=== PATIENT | male | born 1960 | race Caucasian/White ===

== ENCOUNTER 2017-09-19 11:56 | Emergency (ER) | payer BC ==
[2017-09-19 12:28] VITALS: BP 128/82
--- NOTE | 2017-09-19 12:50 | UC ---
Respiratory Complaint HPI - HPI Summary HPI Summary: Post nasal drip, cough, congestion, sore throat for about two days. had something similar prior. NO fever. Non smoker. No asthma. - History of Current Complaint Chief Complaint: UCRespiratory Stated Complaint: SINUS/ST COMPLAINT Time Seen by Provider: 09/19/17 12:35 Hx Obtained From: Patient Onset/Duration: Gradual Onset, Lasting Days Timing: Constant Severity Initially: Moderate Severity Currently: Moderate Pain Intensity: 0 Character: Cough: Productive Aggravating Factors: Deep Breaths, Recumbent Position Alleviating Factors: Upright Position, Spontaneous Resolution Associated Signs And Symptoms: Positive: Dyspnea, URI, Nasal Congestion, Sinus Discomfort. Negative: Fever, Chills - Risk Factors Pulmonary Embolism Risk Factors: Negative - Allergies/Home Medications Allergies/Adverse Reactions: Allergies Allergy/AdvReac Type Severity Reaction Status Date / Time No Known Allergies Allergy Verified 09/19/17 12:21 Home Medications: Home Medications Losartan/HCTZ 100/25 (NF) [Hyzaar 100/25 (NF)] 1 tab PO SEE INSTRUCTIONS [History Confirmed 09/19/17] carBAMazepine TAB(*) [TEGretol TAB(*)] 200 mg PO QID 09/19/17 [History Confirmed 09/19/17] guaiFENesin ER TAB [Mucinex*] 600 mg PO BID PRN 09/19/17 [History Confirmed ] PMH/Surg Hx/FS Hx/Imm Hx Previously Healthy: No - prior pneumonia. - Surgical History Surgical History: None - Family History Known Family History: Positive: None - Social History Alcohol Use: Occasionally Substance Use Type: None Smoking Status (MU): Never Smoked Tobacco - Immunization History Most Recent Influenza Vaccination: [id number] Review of Systems ENT: Sore Throat, Sinus Congestion Respiratory: Cough All Other Systems Reviewed And Are Negative: Yes Physical Exam Triage Information Reviewed: Yes Appearance: Well-Appearing, No Pain Distress, Well-Nourished Vital Signs: Initial Vital Signs Temp 98.5 F 09/19/17 12:19 Pulse 80 09/19/17 12:19 Resp 16 09/19/17 12:19 BP 128/82 09/19/17 12:19 Pulse Ox 97 09/19/17 12:19 Vital Signs Reviewed: Yes Eyes: Positive: Conjunctiva Clear ENT: Positive: Pharynx normal, Nasal congestion, TMs normal, Sinus tenderness, Uvula midline. Negative: Pharyngeal erythema, Tonsillar swelling, Tonsillar exudate, Trismus Neck: Positive: Supple, Nontender, No Lymphadenopathy Respiratory: Positive: Lungs clear, Normal breath sounds, No respiratory distress, No accessory muscle use. Negative: Respiratory distress, Decreased breath sounds, Accessory muscle use, Crackles, Rhonchi, Stridor, Wheezing Cardiovascular: Positive: No Murmur, Pulses Normal, Brisk Capillary Refill Abdomen Description: Positive: No Organomegaly, Soft. Negative: Distended, Guarding Musculoskeletal: Positive: Strength Intact, ROM Intact, No Edema Neurological: Positive: Alert, Muscle Tone Normal. Negative: Fatigued Psychological: Positive: Age Appropriate Behavior Skin: Negative: rashes UC Diagnostic Evaluation - Laboratory O2 Sat by Pulse Oximetry: 97 Respiratory Course/Dx - Differential Dx/Diagnosis Provider Diagnoses: uri- viral Discharge - Sign-Out/Discharge Documenting (check all that apply): Discharge/Admit/Transfer - Discharge Plan Condition: Good Disposition: HOME Prescriptions: Acetaminop/Codeine 30 MG TAB* [Tylenol/Codeine 30 MG TAB*] 1 tab PO BEDTIME PRN #10 tab MDD 1 PRN Reason: Cough Amoxicillin PO (*) [Amoxicillin 875 MG (*)] 875 mg PO BID #20 tab Benzonatate CAP* [Tessalon 100 MG CAP*] 100 mg PO TID PRN #30 cap PRN Reason: Cough Patient Education Materials: Upper Respiratory Infection (ED) Referrals: Dilan Aceves MD [Primary Care Provider] - If Needed Additional Instructions: Mucinex D in the Day, Tessalon perles for cough during the day, tylenol with codeine at night for cough. If not better in 7 days try antibiotic. You will have a cough for 1-2 weeks though no matter what. - Billing Disposition and Condition Condition: GOOD Disposition: HOME
== END 2017-09-19 12:54 | disposition home or self-care (01) ==
LOC: UCCORT 11:56
DX: J06.9 Acute upper respiratory infection, unspecified (principal)
CPT/HCPCS: 99212; G0463

== ENCOUNTER 2017-12-17 18:19 | Emergency (ER) | payer BC ==
[2017-12-17 19:04] VITALS: BP 150/100
--- NOTE | 2017-12-17 19:26 | UC ---
General HPI - HPI Summary HPI Summary: The pt is a 57 y/o male presenting to c/o a persistent cough and congestion since 4 months ago worsened today. He notes cough , pressure in the R ear , clear throat exudates aggravated by steamy showers, hay fever , and dry mouth. He denies SOB And wheezing. The pt takes antihistamines and HTN medication daily. This is scribe Pamela Kirby documenting for attending Dr. Tej Ivory.I , Dr. Tej Ivory personally performed the services described in this documentation as scribed in my presence and it is both accurate and complete. - History of Current Complaint Chief Complaint: UCGeneralIllness Stated Complaint: EAR & THROAT PAIN Time Seen by Provider: 12/17/17 19:15 Hx Obtained From: Patient, Family/Rack Loader Onset/Duration: Gradual Onset, Lasting Weeks - 16 weeks, Worse Since - Today Timing: Constant Onset Severity: Mild Current Severity: Mild Pain Intensity: 4 Associated Signs & Symptoms: Positive: Cough, Other - Positive: pressure in the R ear , clear throat exudate , hay fever , and dry mouth. Negative: SOB, Wheezing - Allergy/Home Medications Allergies/Adverse Reactions: Allergies Allergy/AdvReac Type Severity Reaction Status Date / Time No Known Allergies Allergy Verified 12/17/17 19:04 PMH/Surg Hx/FS Hx/Imm Hx Previously Healthy: No Cardiovascular History: Hypertension Neurological History: Seizures - Surgical History Surgical History: None - Family History Known Family History: Positive: Cardiac Disease - [place] - father - Social History Occupation: Employed Full-time Lives: With Family Alcohol Use: Rare Substance Use Type: None Smoking Status (MU): Never Smoked Tobacco - Immunization History Most Recent Influenza Vaccination: [id number] Review of Systems ENT: Ear Ache - R ear pressure, Other - Positive: Clear throat exudate, Hay fever Respiratory: Negative - SOB and Wheezing, Cough Gastrointestinal: Other - Positive: Dry mouth All Other Systems Reviewed And Are Negative: Yes Physical Exam - Summary Physical Exam Summary: General: well-appearing, no pain distress Skin: warm, color reflects adequate perfusion, dry Head: normal Eyes: EOMI, RAMON ENT: L ear canal has minimal amount cerumen; L TM has mild erythema; No tenderness to palpation of the L tragus; No pain with traction of the L pinnae ; R ear is normal ; Posterior pharynx is erythematous Neck: supple, nontender Respiratory: CTA, breath sounds present; No wheezing Cardiovascular: RRR Abdomen: soft, nontender Bowel: present Musculoskeletal: normal, strength/ROM intact Neurological: sensory/motor intact, A&O x3 Psychological: affect/mood appropriate Triage Information Reviewed: Yes Vital Signs: Initial Vital Signs Temp 98.6 F 12/17/17 19:00 Pulse 87 12/17/17 19:00 Resp 16 12/17/17 19:00 BP 150/100 12/17/17 19:00 Pulse Ox 98 12/17/17 19:00 Vital Signs Reviewed: Yes Course/Dx - Course Course Of Treatment: SX > 10 DAYS - Differential Dx - Multi-Symptom Provider Diagnoses: SINUSITIS. PHARYNGITIS Discharge - Sign-Out/Discharge Documenting (check all that apply): Patient Departure - Discharge Plan Condition: Stable Disposition: HOME Prescriptions: Amoxicillin/Clavulanate TAB* [Augmentin TAB 875*] 875 mg PO BID #20 tab Omeprazole CAP* [Prilosec CAP* 20 MG] 20 mg PO BID #30 cap. Patient Education Materials: Pharyngitis (ED), Sinusitis (ED) Referrals: Dilan Aceves MD [Primary Care Provider] - Additional Instructions: FOLLOW UP WITH YOUR DOCTOR. GET RECHECKED FOR ANY WORSENING OF YOUR CONDITION OR QUESTIONS OR CONCERNS. - Billing Disposition and Condition Condition: STABLE Disposition: Home
== END 2017-12-17 19:49 | disposition home or self-care (01) ==
LOC: UCEAST 18:19
DX: J32.9 Chronic sinusitis, unspecified (principal); J02.9 Acute pharyngitis, unspecified
CPT/HCPCS: 99212; G0463

== ENCOUNTER 2018-06-06 05:22 | Emergency (ER) | payer BC ==
[2018-06-06] MEDS ORDERED: EPINEPHrine,Rac 2.25% NEB.SOL* 0.5 ML INH ONE (05:42)
[2018-06-06] MEDS ORDERED: predniSONE TAB* 20 MG PO ONE (05:42)
--- NOTE | 2018-06-06 05:44 | ED ---
Respiratory - HPI Summary HPI Summary: Pt is a 57 y/o M presenting to the ED with a chief respiratory complaint onset around 0200 and 0400. 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 Scant clear phlegm comes up. Pt states he was worried tonight because he coughed and blew his voice out. Pt states he just got over a bout of shingles as well. Per , it gets worse with the cold. - History of Current Complaint Chief Complaint: EDUpperRespComplaint Stated Complaint: ASTHMA Time Seen by Provider: 06/06/18 05:35 Hx Obtained From: Patient Onset/Duration: Gradual Onset, Lasting Weeks, Still Present Timing: Constant Initial Severity: Mild Current Severity: Moderate Pain Intensity: 7 Character: Wheezing, Cough (Productive) Sputum Amount: Scant Sputum Color: Clear Aggravating Factor(s): Weather Change Alleviating Factor(s): Nothing - Allergy/Home Medications Allergies/Adverse Reactions: Allergies Allergy/AdvReac Type Severity Reaction Status Date / Time No Known Allergies Allergy Verified 06/07/18 04:00 Home Medications: Home Medications Acetaminophen [Tylenol Arthritis] 650 mg PO DAILY 06/06/18 [History Confirmed ] Candesartan Cilexetil 2 tab PO DAILY 06/06/18 [History Confirmed 06/06/18] Fluticasone NASAL SPRAY 50MCG* [Flonase NASAL SPRAY 50MCG*] 2 spray BOTH NARES DAILY 06/06/18 [History Confirmed 06/06/18] Levocetirizine Dihydrochloride [Xyzal Allergy 24Hr] 5 mg PO DAILY 06/06/18 [ History Confirmed 06/06/18] Omeprazole CAP (NF) [Prilosec CAP* 20 MG] 20 mg PO DAILY 06/06/18 [History Confirmed 06/06/18] Valacyclovir HCl [Valacyclovir] 1 tab PO DAILY 06/06/18 [History Confirmed 06/06] hydroCHLOROthiazide [Hydrochlorothiazide] 1 cap PO DAILY 06/06/18 [History Confirmed 06/06/18] prednisoLONE 1% OPHTH.SUSP* [Pred Forte 1%*] 1 drop LEFT EYE DAILY 06/06/18 [ History Confirmed 06/06/18] PMH/Surg Hx/FS Hx/Imm Hx Previously Healthy: Yes Endocrine/Hematology History: Denies: Hx Diabetes Cardiovascular History: Reports: Hx Hypertension Respiratory History: Denies: Hx Asthma Neurological History: Reports: Hx Seizures Infectious Disease History: No Infectious Disease History: Denies: Traveled Outside the [place] in Last 30 Days - Family History Known Family History: Positive: Cardiac Disease - [place] - father - Social History Alcohol Use: Rare Substance Use Type: Reports: None Smoking Status (MU): Never Smoked Tobacco Review of Systems Negative: Fever Positive: Cough All Other Systems Reviewed And Are Negative: Yes Physical Exam - Summary Physical Exam Summary: Appearance: Well-appearing, Well-nourished, lying in bed comfortably Skin: Warm, dry, no obvious rash Eyes: sclera anicteric, no conjunctival pallor ENT: mucous membranes moist, pharynx appears normal Neck: Supple, nontender Respiratory: Clear to auscultation, no signs of respiratory distress Cardiovascular: Normal S1, S2. No murmurs. Normal distal pulses in tibial and radial bilaterally. Abdomen: Soft, nontender, normal active bowel sounds present Musculoskeletal: Normal, Strength/ROM Intact Neurological: A&Ox3, awake and alert, mentation is normal, speech is fluent and appropriate Psychiatric: affect is normal, does not appear anxious or depressed Triage Information Reviewed: Yes Vital Signs On Initial Exam: Initial Vitals Temp Pulse Resp BP Pulse Ox 98.5 F 106 16 158/91 95 06/06/18 05:30 06/06/18 05:30 06/06/18 05:30 06/06/18 05:30 06/06/18 05:30 Vital Signs Reviewed: Yes Diagnostics - Vital Signs Vital Signs Temp Pulse Resp BP Pulse Ox 06/06/18 05:30 98.5 F 106 16 158/91 95 - Laboratory Lab Statement: Any lab studies that have been ordered have been reviewed, and results considered in the medical decision making process. - Radiology Chest x-ray Radiology Interpretation Completed By: ED Physician Summary of Radiographic Findings: No acute process. Pending official radiology report. Disposition - Diagnoses Provider Diagnoses: Chronic cough Discharge - Sign-Out/Discharge Documenting (check all that apply): Patient Departure Patient Received Moderate/Deep Sedation with Procedure: No - Discharge Plan Condition: Good Disposition: HOME Prescriptions: predniSONE TAB* [Deltasone 20 MG TAB*] 40 mg PO DAILY 5 Days #10 tab Patient Education Materials: Chronic Cough (ED) Referrals: Dilan Aceves MD [Primary Care Provider] - Additional Instructions: Keep your appt with Dr. Rose. The prescription for prednisone may be helpful both from a diagnostic and therapeutic standpoint, since if you respond to it there would be a stronger argument that the underlying process is related to allergy. Th albuterol inhaler may help your symptoms as well and can be used every 4 hrs as needed. - Billing Disposition and Condition Condition: GOOD Disposition: Home - Attestation Statements Document Initiated by Kurt: Yes Documenting Scribe: Hope Yao Provider For Whom Kurt is Documenting (Include Credential): Cedric Feliciano MD. Scribe Attestation: Hope Lee, jessieed for Cedric Feliciano MD. on 06/07/18 at 1943. Scribe Documentation Reviewed: Yes Provider Attestation: The documentation as recorded by the jessieeHope accurately reflects the service I personally performed and the decisions made by me, Cedric Feliciano MD. Status of Scribe Document: Viewed
[2018-06-06] MEDS ORDERED: Albuterol HFA INHALER* 8 gm MDI INH ONE (06:04)
[2018-06-06 06:49] VITALS: BP 143/98
== END 2018-06-06 06:49 | disposition home or self-care (01) ==
LOC: ED 05:22
DX: R05 Cough (principal); I10 Essential (primary) hypertension
CPT/HCPCS: 71046; 99283; A9270-GY; J7512

== ENCOUNTER 2018-06-07 03:52 | Observation (INO) | payer BC ==
[2018-06-07] MEDS ORDERED: Albuterol/Ipratropium NEB.SOL* Albuterol 2.5 MG/Ipratropium 0.5 MG 3 ML INH ONE (04:24)
--- NOTE | 2018-06-07 04:24 | ED ---
Respiratory - HPI Summary HPI Summary: This patient is a 57 year old male presenting to the emergency room with a CC trouble breathing. Pt states he was in the ED last night for the same complaint and dx with asthma. He was given a nebulizer and steroids with improvement. He states he has a home neb but that it does not work well. Pt states he has a cough and a tight throat. Pt states he has HOOKS and a wheeze. He is denying CP. He has not history of asthma except for last night and is seeing an tooth cutter contact wheel today at 1500. No hx of CAD. - History of Current Complaint Chief Complaint: EDShortnessOfBreath Stated Complaint: ASTHMA ISSUE Time Seen by Provider: 06/07/18 04:00 Hx Obtained From: Patient Onset/Duration: Lasting Hours, Still Present Timing: Constant Initial Severity: Moderate Current Severity: Moderate Pain Intensity: 0 Character: Wheezing Sputum Amount: None Associated Signs and Symptoms: Negative - CP - Allergy/Home Medications Allergies/Adverse Reactions: Allergies Allergy/AdvReac Type Severity Reaction Status Date / Time No Known Allergies Allergy Verified 06/07/18 04:00 PMH/Surg Hx/FS Hx/Imm Hx Endocrine/Hematology History: Denies: Hx Blood Transfusions, Hx Diabetes Cardiovascular History: Reports: Hx Hypertension Respiratory History: Denies: Hx Asthma, Hx Chronic Obstructive Pulmonary Disease (COPD) Neurological History: Reports: Hx Seizures Infectious Disease History: No Infectious Disease History: Denies: Traveled Outside the [place] in Last 30 Days - Family History Known Family History: Positive: Cardiac Disease - [place] - father - Social History Alcohol Use: Rare Substance Use Type: Reports: None Smoking Status (MU): Never Smoked Tobacco Review of Systems ENT: Other - tight throat Negative: Chest Pain Respiratory: Other - HOOKS Positive: Cough - wheeze , Other - trouble breathing Negative: Slurred Speech All Other Systems Reviewed And Are Negative: Yes Physical Exam - Summary Physical Exam Summary: Appearance: Well appearing, no pain distress Skin: warm, dry, reflects adequate perfusion Head/face: normal Eyes: EOMI, RAMON ENT: normal Neck: supple, non-tender Respiratory: bilateral wheeze Cardiovascular: RRR, pulses symmetrical Abdomen: non-tender, soft Musculoskeletal: normal, strength/ROM intact Neuro: normal, sensory motor intact, A&Ox3 Triage Information Reviewed: Yes Vital Signs On Initial Exam: Initial Vitals Temp Pulse Resp BP Pulse Ox 99.2 F 105 24 157/97 95 06/07/18 03:54 06/07/18 03:54 06/07/18 03:54 06/07/18 03:54 06/07/18 03:54 Vital Signs Reviewed: Yes Diagnostics - Vital Signs Vital Signs Temp Pulse Resp BP Pulse Ox 06/07/18 03:54 99.2 F 105 24 157/97 95 - Laboratory Result Diagrams: 06/07/18 04:42 06/07/18 05:57 Lab Statement: Any lab studies that have been ordered have been reviewed, and results considered in the medical decision making process. - EKG 0436 Cardiac Rate: Tachycardia EKG Rhythm: Sinus Tachycardia - at 100 Summary of EKG Findings: no acute changes Disposition - Course Assessment/Plan: This patient is a 57 year old male presenting to the emergency room with a CC trouble breathing. Pt states he was in the ED last night for the same complaint and dx with asthma. He was given a nebulizer and steroids with improvement. He states he has a home neb but that it does not work well. Pt states he has a cough and a tight throat. Pt states he has HOOKS and a wheeze. He is denying CP. He has not history of asthma except for last night and is seeing an tooth cutter contact wheel today at 1500. No hx of CAD. The patient received a duoneb with improvement. Bloodwork obtained. This patient will be signed out to Dr hyman. spoke with dr selby recommended heparin and monitor the pt.for tpa - Differential Dx - Cardiopulmonary Differential Diagnoses - Cardiopulmonary: CHF, Pulmonary Embolism - Diagnoses Provider Diagnoses: Bronchitis, Pulmonary embolism - Critical Care Time Critical Care Time: 30-74 min Discharge - Sign-Out/Discharge Documenting (check all that apply): Sign-Out Patient Signing out patient TO: Ric Hyman Patient Received Moderate/Deep Sedation with Procedure: No - Discharge Plan Condition: Stable Prescriptions: Azithromycin TAB* [Zithromax TAB (Z-WAYNE) 250 mg #6 tabs] 250 mg PO DAILY #4 tab Referrals: Dilan Aceves MD [Primary Care Provider] - - Billing Disposition and Condition Condition: STABLE - Attestation Statements Document Initiated by Scribe: Yes Documenting Scribe: Luis Anthony Provider For Whom Scribe is Documenting (Include Credential): Kal Quintana MD Scribe Attestation: I, Luis Anthony , scribed for Kal Quintana MD on 06/07/18 at 0713. Scribe Documentation Reviewed: Yes Provider Attestation: The documentation as recorded by the Luis hammond accurately reflects the service I personally performed and the decisions made by me, Kal Quintana MD Status of Scribe Document: Viewed
[2018-06-07 04:51] LABS: Hematocrit 41 % (42-52); Hemoglobin 14.3 g/dl (14.0-18.0); Mean Corpuscular HGB Conc 35 g/dl (31-36); Mean Corpuscular Hemoglobin 34 pg (27-31); Mean Corpuscular Volume 96 fL (80-94); Red Blood Count 4.25 10^6/ul (4.00-5.40); Red Cell Distribution Width 15 % (10.5-15); White Blood Count 8.5 10^3/ul (3.5-10.8)
[2018-06-07 05:07] LABS: ABS Basophils 0 10^3/ul (0-0.2); ABS Eosinophils 0.1 10^3/ul (0-0.6); ABS Lymphocytes 0.9 10^3/ul (1.0-4.8); ABS Monocytes 0.4 10^3/ul (0-0.8); ABS Neutrophils 7.1 10^3/ul (1.5-7.7); ABS Nucleated RBC 0 10^3/ul; Eosinophil % 1.7 %; Lymphocyte % 10.2 %; Nucleated Red Blood Cells % 0.5; Platelet Count 171 10^3/ul (150-450)
[2018-06-07 05:26] LABS: Albumin 4.9 g/dL (3.2-5.2); CO2 Carbon Dioxide 23 mmol/L (22-32); Calcium 9.2 mg/dL (8.6-10.3); Chloride 99 mmol/L (101-111); Sodium 133 mmol/L (135-145)
[2018-06-07 05:32] LABS: ALT 10 U/L (7-52); Albumin/Globulin Ratio 1.8 (1-3); Alkaline Phosphatase 78 U/L (34-104); BUN/Creatinine Ratio 13.4 (8-20); Blood Urea Nitrogen 13 mg/dL (6-24); EGFR African American 97.2 (>60); EGFR Non-African American 80.4 (>60); Globulin 2.7 g/dL (2-4); Glucose 152 mg/dL (70-100); Total Protein 7.6 g/dL (6.4-8.9)
[2018-06-07 05:33] LABS: Anion Gap 11 mmol/L (2-11)
[2018-06-07] MEDS ORDERED: Iohexol 350* (CONTRAST) 500 ML MDV IV ONE (05:42)
[2018-06-07 06:29] LABS: Potassium Redraw 3.6 mmol/L (3.5-5.0)
[2018-06-07] MEDS ORDERED: Azithromycin TAB* 250 MG PO ONE (06:49)
--- NOTE | 2018-06-07 07:16 | ED ---
Progress - Progress Note Progress Note: Signed-out from Dr. Quintana at 0700. CTA Chest: 1. Moderate volume of clot located in the pulmonary arteries. The right lung is mostly involved. The right lower lung has a larger volume of clot in the right upper lung and right middle lung. 2. Straightening of the intraventricular septa consistent with right heart strain. 3. No pulmonary consolidation. No pleural effusion. 4. Ecstasia of the ascending aorta. The mid ascending aorta has an AP length of 4 cm. Suggest follow up CT scan in 6 months. ED Provider has reviewed this report. Patient care was discussed with Dr. Oneil, hospitalist and he accepted the patient to be admitted to the hospital. Course/Dx - Diagnoses Provider Diagnoses: Bronchitis, Pulmonary embolism - Provider Notifications Discussed Care Of Patient With: Walter Oneil - Hospitalist Instructed by Provider To: Admit As Inpatient Discharge - Sign-Out/Discharge Documenting (check all that apply): Patient Departure - Admit Receiving patient FROM: Kal Quintana - At 0700 Patient Received Moderate/Deep Sedation with Procedure: No - Discharge Plan Condition: Stable Disposition: ADMITTED TO [facility] Prescriptions: Azithromycin TAB* [Zithromax TAB (Z-WAYNE) 250 mg #6 tabs] 250 mg PO DAILY #4 tab Referrals: Dilan Aceves MD [Primary Care Provider] - - Attestation Statements Document Initiated by Scribe: Yes Documenting Scribe: Abhilash Heck Provider For Whom Scribe is Documenting (Include Credential): Ric Hyman MD Scribe Attestation: Abhilash Lee, scribed for Ric Hyman MD on 06/07/18 at 0748. Status of Scribe Document: Ready
[2018-06-07] MEDS ORDERED: Heparin DRIP 25,000 UNITS(*) 25,000 UNITS/500 ML BAG IV SCH (07:30)
[2018-06-07] MEDS ORDERED: Heparin VIAL(*) 5000 UNITS/ML VIAL (FIVE THOUSAND) ONE (07:44)
[2018-06-07] MEDS ORDERED: Heparin VIAL(*) 5000 UNITS/ML VIAL (FIVE THOUSAND) IV SCH (08:00)
[2018-06-07 08:09] LABS: Activated Partial Thrombo Time 27.1 seconds (26.0-36.3); INR 1.09 (0.77-1.02)
--- NOTE | 2018-06-07 12:33 | HP ---
HISTORY AND PHYSICAL: DATE OF ADMISSION: 06/07/18 ADMITTING PROVIDER: Walter Oneil MD PRIMARY CARE PHYSICIAN: Dr. Dilan Aceves CHIEF COMPLAINT: Acute shortness of breath and nonproductive cough x 10 months. HISTORY OF PRESENT ILLNESS: Beny Palacios is a 57-year-old male with past medical history of hypertension, hyperlipidemia, seizure disorder, obstructive sleep apnea, not compliant with CPAP, who has suffered from a cough since August 2017 when his also initially got sick. It was initially productive of green sputum and since then has been nonproductive. He had developed a hoarse voice for the last week and felt like he had some sort of "asthma like" condition. He had return of green sputum and he to the [facility] ED two nights ago. He had a negative chest x-ray, and felt improved with albuterol treatments and he was discharged home with 40mg prednisone daily. This AM he woke up with worse shortness of breath and returned. Here he had a CT chest angiogram which demonstrated pulmonary embolism with moderate clot burden of the right lung. There was noted straightening of the interventricular septa consistent with potential right heart strain. He was tachycardic in the low 100s, satting mid 90s on room air. Dr. Quintana discussed the case with Dr. Alcantar and there was some consideration for TPA, but ultimately they decided against that and he was started on a heparin drip and referred to hospitalist service for admission. Since then, his BNP has returned 14 and his blood pressure has been stable. His previous workup has included an evaluation by ENT in [place]. He had an laryngoscopy that was reportedly normal. He was due to see Dr. Rose of Allergy and Immunology actually later today. They stopped his lisinopril about a month ago feeling that that he could have been a cause for his cough, but there was no improvement. He denies any fevers, chills, nausea, vomiting, diarrhea, constipation, stomach pains. He has been unable to lie down flat for worsening shortness of breath. He had colonoscopy 1 year ago, which was reportedly normal. Denies any night sweats, but had a history of those several years ago. He denies any cramps in the legs (Addendum: he would later attest to right calf cramp for about 2 weeks), any recent air travel, any immobility ( though he does spent about 16 hours a day either asleep or sedentary during the winter months) or long car rides. He did have some pains in his lower extremities approximately 18 months ago and his cholesterol medication was stopped at that time and is just about to start a new one. PAST MEDICAL HISTORY: Seizure disorder; hypertension; hyperlipidemia; obstructive sleep apnea, not compliant with CPAP. HOME MEDICATIONS: Include: 1. Prednisone 40 mg daily (started 2 days ago). 2. Hydrochlorothiazide 12.5 mg daily. 3. Tegretol 400 mg b.i.d. 4. Valacyclovir 1 tab p.o. daily. 5. Prilosec 20 mg p.o. daily. 6. Xyzal Allergy 24 hours 5 mg p.o. daily. 7. Flonase 2 sprays both nares daily. 8. Candesartan 16 mg daily. 9. Acetaminophen 650 mg p.o. daily. 10. Prednisolone 1% ophthalmic suspension left eye daily. FAMILY HISTORY: His mother is alive at age 89, is healthy. Father of Alzheimer's at age 89. SOCIAL HISTORY: He is a never smoker, never drinker. Denies drug use. He owns his own business. He desires to be a full code. His medical surrogate is his , Zoe Palacios. REVIEW OF SYSTEMS: Complete 14-point review of systems negative except as per HPI. PHYSICAL EXAMINATION GENERAL APPEARANCE: No acute distress. VITAL SIGNS: Temperature 99.2, pulse rate 107, respiratory rate 18, satting 97 % on room air, blood pressure 139/96. HEENT: Normocephalic, atraumatic. Pupils are equal, round, and reactive to light. Extraocular muscles intact. No scleral icterus. Moist mucous membranes. LUNGS: Clear to auscultation bilaterally, with no wheezing, rales, or rhonchi. CARDIOVASCULAR: Tachycardic, regular. No murmurs, rubs, or gallops. ABDOMEN: Morbidly obese with central obesity, nontender, soft. No rebound, no guarding EXTREMITIES: Warm and well perfused. No peripheral edema. NEUROLOGIC: Cranial nerves II through XII intact. Moving all extremities. Store Loss Prevention Manager strength intact. DIAGNOSTIC DATA/LAB DATA: Laboratories: White count 8.5, hemoglobin 14.3, hematocrit 41, platelets 171. INR 1.09. Sodium 133, potassium 3.6, chloride 99 , carbon dioxide 23, BUN 13, creatinine 0.97, glucose 152, calcium 9.2, total bili 0.7, AST 13, ALT 10, alk phos 78. Troponin 0.0, BNP 14. Imaging: CT chest angiogram with impression: 1. Moderate volume of clot within the pulmonary areas. The right lung is mostly involved. The right lower lung has a larger volume of clot than the right upper lung and the right middle lung. 2. Straightening of the interventricular septa consistent with the right heart strain. 3. No pulmonary consolidation or pleural effusion. 4. Ectasia of the ascending aorta. The mid ascending aorta has an AP length of [address] scan in 6 months. Recent chest x-ray from 06/06/18, 6 a.m., demonstrated no acute cardiopulmonary disease. EKG with sinus tachycardia, rate 100, normal axis, normal intervals. No ST elevations or depressions. There is a T-wave inversion in lead III. QRS is 103 , QTc is 429. ASSESSMENT AND PLAN: Beny Palacios is a 57-year-old male with past medical history of hypertension with chronic nonproductive cough for 10 months with negative workup, now presenting with acute onset shortness of breath, tachycardia, and found to have a moderate clot burden mostly right sided pulmonary embolismt. There was initially some consideration between ED providers and Dr. Alcantar for TPA, but they decided against it and he has since been started on heparin drip. His PESI score is 65, but does have some borderline tachycardia in the low 100s, which nearly puts him at 75, both in the low risk stratification. He is going to have a echocardiogram to evaluate for right heart strain/cor pulmonale. He has no biomarker elevations of troponin or BNPWill get an ultrasound of his bilateral lower extremities. He does not have a clear provoking factor and did have a recent colonoscopy. Denies any night sweats or weight loss, or any particular point of concern for occult malignancy, I am adding on an anti-phospholipid antibody, factor V Leiden , and prothrombin gene mutation should be compatible with his heparin drip and acute thrombosis. Continue with the heparin drip until the echocardiogram and lower extremity Dopplers are obtained. Consideration for direct oral anticoagulant like Xarelto or Eliquis later on tonight if clinically is stable ( Addendum: however there would be interaction with his tegretol unfortunately). He does have a hyperglycemia but also in the setting of recent starting of prednisone 40 mg daily. He is a [facility] patient. We do not have a lot of prior records on him, but his glucose has actually been only 112. That is the only glucose we have in our system, we will try to obtain prior records from Dr. Aceves's office, consideration for having A1c. I will hold his blood pressure medications in setting of acute PE. I will continue him on albuterol inhalers p.r.n. which he seems to get some symptomatic relief. Continue his Xyzal, Prilosec, prednisolone. I am holding his prednisone 40 mg daily, continue his valacyclovir if we have on the formulary, continue his Flonase, his Tegretol 400 mg p.o. b.i.d. for his seizure disorder, last seizure 30 years ago. He is a full code, medical surrogate is his . DVT prophylaxis, he is on already heparin drip. [id number]/[facility] #: [id number] CECILE
[2018-06-07] MEDS ORDERED: Perflutren Lipid Microsphere* 3 ML VIAL ONE (13:48)
[2018-06-07] MEDS: Fluticasone NASAL SPRAY 50MCG* 16 gm SPRAY BTL BOTH NARES SCH ×2 (14:33→20:52)
--- NOTE | 2018-06-07 14:46 | ECHO ---
Patient: SHY GOMEZ [facility] Rec#: [id number] : 1960 Date: 06/07/2018 Age: 57y Height: 178 cm / 70.1 in Weight: 138 kg / 304.2 lbs Sex: M BSA: 2.5 Room#: [facility] Admit Date#: 06/07/2018 Type: Inpatient Referring: Kal Quintana Reading: Julio Samuels DO Literacy Education Professor: Josey Aguilar RDCS CC: Dilan Aceves MD Transthoracic Echocardiogram Indication: Pulmonary Embolism BP: 157/97 HR: 95 Rhythm: NSR Findings History: Morbid obesity,HTN,seizures,HLD, JESSICA noncompliant with CPAP,current chest CTA + PE. Technical Comments: The study is technically difficult. Definity used to enhance images. The study is technically limited due to patient body habitus. Completed at 1440. Left Ventricle: The left ventricular chamber size is normal. Global left ventricular wall motion and contractility are within normal limits. There is normal left ventricular systolic function. The estimated ejection fraction is greater than 65%. The assessment of diastolic function is non-diagnostic. Left Atrium: The left atrium is not well visualized. Right Ventricle: The right ventricle is not well visualized. Right Atrium: The right atrium is not well visualized. Aortic Valve: The aortic valve structure is not well visualized.no significant stenosis or regurgitation by CW and doppler evaluation Mitral Valve: The mitral valve structure is not well visualized. There is no evidence of mitral regurgitation.that is significant There is no evidence of mitral stenosis. Tricuspid Valve: The tricuspid valve structure is not well visualized. Unable to estimate the right ventricular systolic pressure. Pulmonic Valve: The pulmonic valve structure is not well visualized. There is no evidence of pulmonic regurgitation. There is no pulmonic stenosis. Pericardium: There is no significant pericardial effusion. Aorta: The ascending aorta is not well visualized. The aortic arch is not well visualized. The aortic root is not well visualized. Pulmonary Artery: The main pulmonary artery is not well visualized. Venous: The venous system is not well visualized. Contrast: Definity was used to optimize study. A total of 9 ml used. Intravenous contrast was used to enhance endocardial border definition. Conclusions The left ventricular chamber size is normal. Global left ventricular wall motion and contractility are within normal limits. There is normal left ventricular systolic function. The estimated ejection fraction is 65-70% The left atrium is not well visualized. The right ventricle is not well visualized. The right atrium is not well visualized. The tricuspid valve structure is not well visualized. Unable to estimate the right ventricular systolic pressure. None prior for comparison, study remained technically difficult despite the use of definity Measurements Name Value Normal Range MV E-wave Vmax 0.7 m/sec - MV deceleration time 172 msec - MV A-wave Vmax 1.1 m/sec - MV E:A ratio 0.07 ratio - LV septal e' Vmax 0.09 m/sec - LV lateral e' Vmax 0.09 m/sec - LV E:e' septal ratio 7.78 ratio - LV E:e' lateral ratio 7.78 ratio - Name Value Normal Range AV Vmax 1.6 m/sec - AV VTI 24.2 cm - AV peak gradient 10 mmHg - AV mean gradient 4 mmHg - LVOT Vmax 1 m/sec - LVOT VTI 18.5 cm - LVOT peak gradient 4 mmHg - LVOT mean gradient 2 mmHg - Name Value Normal Range PV Vmax 0.8 m/sec - PV peak gradient 3 mmHg -
[2018-06-07] MEDS: carBAMazepine TAB(*) 200 MG PO SCH ×2 (14:55→20:18)
[2018-06-07] MEDS: prednisoLONE 1% OPHTH.SUSP* 5 ML OPHTH.SUSP LEFT EYE SCH (14:56)
[2018-06-07] MEDS: ValACYclovir (*) 1 GM TAB PO SCH (14:56)
[2018-06-07] MEDS: Pantoprazole TAB * 40 MG TAB PO SCH (14:56)
[2018-06-07] MEDS ORDERED: Warfarin TAB(*) 6 MG PO SCH (17:00)
[2018-06-07] MEDS: Enoxaparin(*) 150 MG/ML 1 ML SYRINGE SUBCUT SCH (17:06)
[2018-06-08] MEDS: Enoxaparin(*) 150 MG/ML 1 ML SYRINGE SUBCUT SCH (04:46)
[2018-06-08 05:39] LABS: ABS Basophils 0.1 10^3/ul (0-0.2); ABS Eosinophils 0.2 10^3/ul (0-0.6); ABS Lymphocytes 1.4 10^3/ul (1.0-4.8); ABS Monocytes 0.4 10^3/ul (0-0.8); ABS Neutrophils 3.6 10^3/ul (1.5-7.7); ABS Nucleated RBC 0 10^3/ul; Eosinophil % 2.8 %; Hematocrit 40 % (42-52); Hemoglobin 14.1 g/dl (14.0-18.0); Lymphocyte % 24.1 %; Mean Corpuscular HGB Conc 35 g/dl (31-36); Mean Corpuscular Hemoglobin 33 pg (27-31); Mean Corpuscular Volume 94 fL (80-94); Mean Platelet Volume 7.3 fL (7.4-10.4); Nucleated Red Blood Cells % 0.1; Platelet Count 162 10^3/ul (150-450); Red Blood Count 4.23 10^6/ul (4.00-5.40); Red Cell Distribution Width 15 % (10.5-15); White Blood Count 5.6 10^3/ul (3.5-10.8)
[2018-06-08 05:45] LABS: INR 1.14 (0.77-1.02)
[2018-06-08 05:57] LABS: Calcium 9.5 mg/dL (8.6-10.3); EGFR African American 111.7 (>60); EGFR Non-African American 92.3 (>60); Potassium 3.4 mmol/L (3.5-5.0)
[2018-06-08] MEDS: carBAMazepine TAB(*) 200 MG PO SCH (08:08)
[2018-06-08] MEDS: Pantoprazole TAB * 40 MG TAB PO SCH (08:09)
[2018-06-08] MEDS: prednisoLONE 1% OPHTH.SUSP* 5 ML OPHTH.SUSP LEFT EYE SCH (08:10)
[2018-06-08] MEDS: Fluticasone NASAL SPRAY 50MCG* 16 gm SPRAY BTL BOTH NARES SCH (08:10)
[2018-06-08] MEDS ORDERED: Cetirizine* 10 MG TAB PO SCH (09:00)
[2018-06-08] MEDS: ValACYclovir (*) 1 GM TAB PO SCH (09:05)
[2018-06-08 12:05] VITALS: BP 138/72
--- NOTE | 2018-06-08 14:41 | DS ---
DISCHARGE SUMMARY: DATE OF ADMISSION: 06/07/18 DATE OF DISCHARGE: 06/08/18 ADMITTING PROVIDER: Walter Oneil MD ATTENDING PHYSICIAN ON DAY OF DISCHARGE: Walter Oneil MD PRIMARY CARE PHYSICIAN: Dilan Aceves MD CHIEF COMPLAINT: Acute shortness of breath, nonproductive cough x10 months. PRINCIPAL DIAGNOSES: 1. Acute, mostly right-sided pulmonary embolism (moderate clot burden). 2. Right peroneal occlusive deep vein thrombosis. HISTORY OF PRESENT ILLNESS AND HOSPITAL COURSE: Beny Palacios is a 57-year - old male with past medical history of hypertension, hyperlipidemia, seizure disorder, obstructive sleep apnea, not compliant with CPAP and chronic cough since August 2017. Please H and P for full details, but briefly, he had come to the ED 2 nights prior, with now again productive cough and got albuterol and steroid treatment, but woke up extremely extremely short of breath and would later relate that he has had cramping in his right calf for about 2 weeks. He was found on CT chest angiogram to have a pulmonary embolism with moderate clot burden in mostly right lung and straightening of the interventricular septum consistent with a potential for right heart strain. The ED physician discussed case with rental clerk, Dr. Alcantar; and after some discussion, the patient was not considered TPA candidate and was started on heparin drip and referred to hospitalist service for admission. He had been tachycardic to low 100s. Otherwise, he has been significantly stable on room air, got a echocardiogram, which was a limited study given his body habitus (morbid obesity with BMI 44.3) , but did show ejection fracture of 65%. Diastolic function was nondiagnostic. The left atrium, right atrium, right ventricle were not well visualized and unable to estimate RVSP. He was transitioned to Lovenox bridging to Coumadin ( consideration initially for direct oral anticoagulant Eliquis or Xarelto was entertained, but these would interact with with his longstanding Tegretol dosing for seizure disorder with this last seizure being approximately 30 years ago). He will need close follow up with frequent INRs a and goal INR of 2 to 3. On day of discharge, he was feeling well, able to walk around the unit. Of note, his blood pressure medications were held, it has been between 120s to 130s here. He was advised record his blood pressure daily and take to Dr. Aceves's office. Recommended INR check on 06/11/18 and likely will need a second one, later that week as well. He did have factor V Leiden mutation, antiphospholipid antibodies, and prothrombin gene mutation checked and these are pending. DISCHARGE MEDICATIONS: Include: 1. Tegretol 400 mg p.o. b.i.d. 2. Flonase 2 sprays both nares daily. 3. Levocetirizine dihydrochloride (Xyzal) 5 mg p.o. daily. 4. Prilosec 20 mg p.o. daily. 5. Prednisolone 1 drop left eye daily that is 1%. 6. Valacyclovir 1 tab p.o. daily 1000 mg. 7. Warfarin 6 mg mg daily, first dose was 06/07/18. 8. Acetaminophen 650 mg p.o. daily. 9. Lovenox 140 mg q.12 hours, given 16 syringes and will need to continue until INR has been therapeutic and stable between 2 and 3 for at least 24 hours. Note that warfarin was distributed 2 mg tablets to be taken 6 mg initially, those were new. So, the new medications were enoxaparin and warfarin and of note his candesartan 16 mg daily and hydrochlorothiazide 12.5 mg daily were held in the setting of his acute pulmonary embolism and stable systolic blood pressures of 120s here. DISCHARGE DIET: Heart healthy, unchanged. FOLLOWUP: Please follow up with Dr. Aceves within 7 days, but needs an INR check sooner than that, no later than on 06/11/18. He was given card and contact information for the [facility] if Dr. Aceves's office was not for any reason able to coordinate these INR checks. TIME SPENT ON DISCHARGE: 35 minutes. [id number]/[facility] #: [id number] CECILE
[2018-06-10 15:55] LABS: Factor V Leiden Mutation Negative (Negative); Prothrombin 20210 Mutation Negative (Negative)
[2018-06-10 17:27] LABS: Phospholipid Ab IgG < 9.4 GPL; Phospholipid Ab IgM, S < 9.4 MPL
== END 2018-06-08 12:30 | disposition home or self-care (01) ==
LOC: ED 03:52 → INTOOBSV 07:52 → ICU 07:52 → MEDTELE 12:31
PROVIDERS: ADMIT Internal Medicine; ATTEND Internal Medicine
DX: I26.99 Other pulmonary embolism without acute cor pulmonale (principal); I82.4Z2 Acute embolism and thrombosis of unspecified deep veins of left distal lower extremity; J40 Bronchitis, not specified as acute or chronic; R05 Cough; R06.2 Wheezing; Z79.01 Long term (current) use of anticoagulants
CPT/HCPCS: 36415; 71275; 80048; 80053; 81240; 81241; 83880; 84484; 85025; 85610; 85730; 86147; 93005; 93306; 93970; 99285; A9270-GY; C8929; G0378; J1644; J1650; Q9967

== ENCOUNTER 2018-08-13 21:52 | Emergency (ER) | payer BC ==
[2018-08-13 22:01] VITALS: BP 130/74
[2018-08-13] MEDS ORDERED: Albuterol 2.5 MG/3 ML NEB.SOL* (0.083%) INH ONE (22:04)
[2018-08-13] MEDS ORDERED: Azithromycin TAB* 250 MG PO ONE (22:30)
--- NOTE | 2018-08-13 22:33 | UC ---
Respiratory Complaint HPI - HPI Summary HPI Summary: 58-year-old male comes to clinic with chief complaint of chest congestion. Patient's had flulike symptoms for more than a week and has been now having chest congestion. Ears wheezing in his chest. He does have asthma and uses an inhaler at home. He requests a nebulizer treatment as he feels that helps him more. Laying down makes the breathing worse sitting up and coughing and clearing sputum makes it better. Denies any calf pain or calf swelling. Patient does have a history of her right calf DVT he is on Coumadin for that. His is also been sick with similar symptoms. - History of Current Complaint Chief Complaint: UCRespiratory Stated Complaint: CONGESTED Time Seen by Provider: 08/13/18 22:04 Pain Intensity: 0 - Allergies/Home Medications Allergies/Adverse Reactions: Allergies Allergy/AdvReac Type Severity Reaction Status Date / Time No Known Allergies Allergy Verified 08/13/18 22:01 PMH/Surg Hx/FS Hx/Imm Hx Previously Healthy: Yes - DVT GI/ History: Gastroesophageal Reflux - Surgical History Surgical History: None - Family History Known Family History: Positive: Cardiac Disease - [place] - father - Social History Alcohol Use: Rare Substance Use Type: None Smoking Status (MU): Never Smoked Tobacco - Immunization History Most Recent Influenza Vaccination: 2018 Most Recent Pneumonia Vaccination: Never Review of Systems All Other Systems Reviewed And Are Negative: Yes Constitutional: Positive: Negative Skin: Positive: Negative Eyes: Positive: Negative ENT: Positive: Sore Throat, Nasal Discharge, Sinus Congestion Respiratory: Positive: Shortness Of Breath, Cough, Other - SEE HPI Cardiovascular: Positive: Negative Gastrointestinal: Positive: Negative Motor: Positive: Negative Neurovascular: Positive: Negative Musculoskeletal: Positive: Negative. Negative: Calf Tenderness Neurological: Positive: Negative Psychological: Positive: Negative Is Patient Immunocompromised?: No Physical Exam Triage Information Reviewed: Yes Appearance: No Pain Distress, Well-Nourished, Ill-Appearing - MILD Vital Signs: Initial Vital Signs Temp 97.7 F 08/13/18 21:55 Pulse 86 08/13/18 21:55 Resp 18 08/13/18 21:55 BP 130/74 08/13/18 21:55 Pulse Ox 98 08/13/18 21:55 Vital Signs Reviewed: Yes Eye Exam: Normal Eyes: Positive: Conjunctiva Clear ENT: Positive: Pharyngeal erythema, Nasal congestion, Nasal drainage, TMs normal Neck: Positive: Supple Cardiovascular: Positive: RRR Musculoskeletal Exam: Normal Musculoskeletal: Positive: Strength Intact, ROM Intact, No Edema, Other: - NO CALF TENDERNESS Neurological Exam: Normal Neurological: Positive: Alert, Muscle Tone Normal Psychological Exam: Normal Psychological: Positive: Normal Response To Family, Age Appropriate Behavior Skin Exam: Normal Respiratory Course/Dx - Differential Dx/Diagnosis Provider Diagnosis: Bronchitis with bronchospasm Discharge - Sign-Out/Discharge Documenting (check all that apply): Patient Departure All imaging exams completed and their final reports reviewed: No Studies - Discharge Plan Condition: Stable Disposition: HOME Prescriptions: Azithromycin 250 mg PO DAILY #4 tablet Patient Education Materials: Acute Bronchitis (ED), Bronchospasm (ED) Referrals: Dilan Aceves MD [Primary Care Provider] - Additional Instructions: FOLLOW UP WITH YOUR DOCTOR IF NOT COMPLETELY IMPROVED. GET REEVALUATED SOONER FOR ANY WORSENING OF YOUR CONDITION OR ANY QUESTIONS OR CONCERNS. - Billing Disposition and Condition Condition: STABLE Disposition: Home
== END 2018-08-13 22:45 | disposition home or self-care (01) ==
LOC: UCEAST 21:52
DX: J20.9 Acute bronchitis, unspecified (principal); I82.5Z1 Chronic embolism and thrombosis of unspecified deep veins of right distal lower extremity; Z79.01 Long term (current) use of anticoagulants
CPT/HCPCS: 99212; A9270-GY; G0463

== ENCOUNTER 2018-09-11 14:10 | Emergency (ER) | payer BC ==
--- NOTE | 2018-09-11 15:35 | ED ---
Complex/Multi-Sys Presentation - HPI Summary HPI Summary: Pt. is a 58 y.o male who presents to the ER for evaluation of high blood pressure. Pt. states he was having difficulty sleeping last night and felt anxious so he took his BP and it was 190/110. Pt. states he called his PCP today but they were out of the office. Pt. notes he has been having pain in his posterior shoulder for a few days and PCP placed him on valium to help with muscle relaxation and anxiety. Pt. states he was recently dx with PE and is on coumadin. Pt. states he gets very anxious about clots. Pt. states his lung are now free of clots and his has a small dvt. Pt. denies fever, cough, CP, SOB, h/ a. Sxs are moderate in severity. No current modifying factors. Pt. taking HCTZ. - History Of Current Complaint Chief Complaint: EDHypertension Time Seen by Provider: 09/11/18 15:23 Hx Obtained From: Patient - Allergies/Home Medications Allergies/Adverse Reactions: Allergies Allergy/AdvReac Type Severity Reaction Status Date / Time No Known Allergies Allergy Verified 09/11/18 14:23 PMH/Surg Hx/FS Hx/Imm Hx Previously Healthy: Yes Endocrine/Hematology History: Denies: Hx Blood Transfusions, Hx Diabetes Cardiovascular History: Reports: Hx Hypercholesterolemia, Hx Hypertension Respiratory History: Denies: Hx Asthma, Hx Chronic Obstructive Pulmonary Disease (COPD) History: Denies: Hx Renal Disease Sensory History: Reports: Hx Contacts or Glasses Denies: Hx Hearing Aid Opthamlomology History: Reports: Hx Contacts or Glasses Neurological History: Reports: Hx Seizures Infectious Disease History: No Infectious Disease History: Denies: Traveled Outside the [place] in Last 30 Days - Family History Known Family History: Positive: Cardiac Disease - [place] - father - Social History Occupation: Employed Full-time Lives: With Family Alcohol Use: None Substance Use Type: Reports: None Smoking Status (MU): Never Smoked Tobacco Review of Systems Constitutional: Negative Negative: Fever, Chills Eyes: Negative Cardiovascular: Negative Negative: Palpitations, Chest Pain Respiratory: Negative Negative: Shortness Of Breath, Cough Gastrointestinal: Negative Negative: Vomiting, Nausea Positive: Other - bilateral posterior shoulder pain Skin: Negative Neurological: Negative Negative: Headache, Weakness, Paresthesia, Numbness, Syncope, Slurred Speech All Other Systems Reviewed And Are Negative: Yes Physical Exam Triage Information Reviewed: Yes Vital Signs On Initial Exam: Initial Vitals Temp Pulse Resp BP Pulse Ox 98.5 F 96 18 153/98 98 09/11/18 14:19 09/11/18 14:19 09/11/18 14:19 09/11/18 14:19 09/11/18 14:19 Vital Signs Reviewed: Yes Appearance: Positive: Well-Appearing - Pt. sitting in chair in NAD. present., Well-Nourished Skin: Positive: Warm, Dry Head/Face: Positive: Normal Head/Face Inspection Eyes: Positive: Normal, EOMI, RAMON Neck: Positive: Supple, Nontender Respiratory/Lung Sounds: Positive: Clear to Auscultation, Breath Sounds Present Cardiovascular: Positive: Normal, RRR Musculoskeletal: Positive: Other - Reproducible pain to bilateral upper back. Neurological: Positive: Normal, CN Intact II-III Psychiatric: Positive: Affect/Mood Appropriate Diagnostics - Vital Signs Vital Signs Temp Pulse Resp BP Pulse Ox 09/11/18 15:18 96 140/92 94 09/11/18 14:19 98.5 F 96 18 153/98 98 - Laboratory Result Diagrams: 09/11/18 15:42 09/11/18 15:42 Lab Statement: Any lab studies that have been ordered have been reviewed, and results considered in the medical decision making process. Complex Multi-Symp Course/Dx Course Of Treatment: Pt. presenting for evaluation after a high BP read last night. BP in ED 140/92. ECG done at 1555 shows a sinus rhythm of 88bpm, normal axis, no ST elevation or depression, unchanged from prior tracing. CXR unremarkable. Labs are unremarkable. INR therapeutic. Will dc pt. home to . with PCP. - Diagnoses Provider Diagnoses: Hypertension, Anxiety Discharge - Sign-Out/Discharge Documenting (check all that apply): Patient Departure Patient Received Moderate/Deep Sedation with Procedure: No - Discharge Plan Condition: Improved Disposition: HOME Patient Education Materials: Hypertension (ED) Referrals: Dilan Aceves MD [Primary Care Provider] - Additional Instructions: Follow up with PCP in 2-3 days Continue home medications as directed Return to ER if symptoms change or worsen - Billing Disposition and Condition Condition: IMPROVED Disposition: Home
[2018-09-11 15:53] LABS: ABS Lymphocytes 1.3 10^3/ul (1.0-4.8); ABS Monocytes 0.3 10^3/ul (0-0.8); Eosinophil % 0.2 %; Hematocrit 42 % (42-52); Hemoglobin 15.4 g/dL (14.0-18.0); Lymphocyte % 19.1 %; Mean Corpuscular HGB Conc 36 g/dL (31-36); Mean Corpuscular Hemoglobin 34 pg (27-31); Mean Corpuscular Volume 92 fL (80-94); Mean Platelet Volume 7.3 fL (7.4-10.4); Nucleated Red Blood Cells % 0.2; Platelet Count 176 10^3/uL (150-450); Red Blood Count 4.59 10^6 /uL (4.18-5.48); Red Cell Distribution Width 14 % (10.5-15); White Blood Count 6.7 10^3/uL (3.5-10.8)
[2018-09-11 16:19] LABS: Albumin 5.1 g/dL (3.2-5.2); Calcium 10.1 mg/dL (8.6-10.3); Globulin 2.6 g/dL (2-4); Potassium 3.7 mmol/L (3.5-5.0); Total Bilirubin 0.7 mg/dL (0.2-1.0); Total Protein 7.7 g/dL (6.4-8.9)
[2018-09-11 17:39] LABS: INR 2.29 (0.82-1.09)
[2018-09-11 18:01] VITALS: BP 150/100
== END 2018-09-11 18:00 | disposition home or self-care (01) ==
LOC: ED 14:10
DX: I10 Essential (primary) hypertension (principal); E78.00 Pure hypercholesterolemia, unspecified; F41.9 Anxiety disorder, unspecified
CPT/HCPCS: 36415; 71046; 80053; 84484; 85025; 85610; 93005; 99282

== ENCOUNTER 2018-10-07 11:12 | Emergency (ER) | payer BC ==
--- NOTE | 2018-10-07 13:05 | UC ---
Respiratory Complaint HPI - HPI Summary HPI Summary: 58 y/o male presents to the urgent care c/o nasal congestion w/ moderate PND and productive cough w/ green phlegm since last Sunday10/04/2018. Pt reports mild wheezing since last night and this morning his chest feels tight. Pt has been taken Alkaseltzer plus w/o any improvement of symptoms. Pt reports he has similar symptoms in 08/2018 and was seen here and Dx w/ bronchitis and Rx Z-gogo. Pt states he thinks symptoms are similar and he would like to have a chest X- ray to r/o pneumonia. Pt denies fever, but had chills last night. Pt denies SOB , chest pain, abdominal pain, N/v/d. Pt has an appt w/ DR [facility] in 1 weeks - History of Current Complaint Chief Complaint: UCRespiratory Stated Complaint: RESPORTORY ISSUES Time Seen by Provider: 10/07/18 12:53 Hx Obtained From: Patient Onset/Duration: Gradual Onset, Lasting Days - 4 days, Still Present, Worse Since - last night w/ mild wheezing Timing: Intermittent Episodes Severity Initially: Mild Severity Currently: Moderate Pain Intensity: 8 Pain Scale Used: 0-10 Numeric Character: Cough: Productive, Sputum Description: - green Aggravating Factors: Recumbent Position Alleviating Factors: OTC Meds Associated Signs And Symptoms: Positive: Chills, Wheezing - mild since last night, URI, Nasal Congestion, Sinus Discomfort. Negative: Fever Related History: Similar Episode/Dx as: - Bronchitis 2 months ago - Risk Factors Pulmonary Embolism Risk Factors: Negative Cardiac Risk Factors: Negative Pseudomonas Risk Factors: Negative Tuberculosis Risk Factors: Negative - Allergies/Home Medications Allergies/Adverse Reactions: Allergies Allergy/AdvReac Type Severity Reaction Status Date / Time No Known Allergies Allergy Verified 10/07/18 11:45 Home Medications: Home Medications Dm/P-Ephed/Acetaminoph/Doxylam [[place] Plus Cold+Flu Pkt] 1 unit PO ONCE PRN 10/07/18 [History Confirmed 10/07/18] Loratadine [Claritin] 10 mg PO DAILY 10/07/18 [History Confirmed 10/07/18] PMH/Surg Hx/FS Hx/Imm Hx Previously Healthy: Yes Cardiovascular History: Hypertension, Deep Vein Thrombosis GI/ History: Gastroesophageal Reflux - Surgical History Surgical History: Yes Surgery Procedure, Year, and Place: eye surgery, tonsilectomy - Family History Known Family History: Positive: Cardiac Disease - [place] - father, Diabetes - Social History Occupation: Employed Full-time Lives: With Family Alcohol Use: None Substance Use Type: None Smoking Status (MU): Never Smoked Tobacco - Immunization History Most Recent Influenza Vaccination: 2018 Most Recent Pneumonia Vaccination: Never Review of Systems All Other Systems Reviewed And Are Negative: Yes Constitutional: Positive: Chills Skin: Positive: Negative Eyes: Positive: Negative ENT: Positive: Nasal Discharge - green, Sinus Congestion, Sinus Pain/Tenderness , Other - moderate green PND Respiratory: Positive: Cough - productive w/ green phlegm, Other - mild wheezing Cardiovascular: Positive: Negative Gastrointestinal: Positive: Negative Genitourinary: Positive: Negative Motor: Positive: Negative Neurovascular: Positive: Negative Musculoskeletal: Positive: Negative Neurological: Positive: Negative Psychological: Positive: Negative Is Patient Immunocompromised?: No Physical Exam - Summary Physical Exam Summary: Vital Signs Reviewed: Yes General: well developed, well nourished obese male sitting in the examining table w/o any apparent distress Eyes: Positive: Conjunctiva Clear - PERRLA, EOMI, fundi grossly normal ENT: Positive: Normal ENT inspection, Hearing grossly normal, Pharynx normal, Nasal congestion - edematous and erythematous nasal mucosa, Nasal drainage - yellowish drainage, TMs normal. Negative: Tonsillar swelling, Tonsillar exudate Neck: Positive: Supple, Nontender, No Lymphadenopathy Respiratory: no orthopnea or dyspnea. Able to speak in full sentences, no retractions or accessory muscle use, no tripod position, stridor, or head bobbing. Positive breath sounds bilaterally. B/L posterior upper lungs w/ scattered rhonchi, mild wheezing, no crackles or rales. Cardiovascular: Positive: RRR, No Murmur, Pulses Normal, Brisk Capillary Refill Abdomen Description: Positive: Nontender, No Organomegaly, Soft. Negative: CVA Tenderness (R), CVA Tenderness (L) Bowel Sounds: Positive: Present Musculoskeletal Exam: Normal Musculoskeletal: Positive: Strength Intact, ROM Intact, No Edema Neurological Exam: Normal Psychological Exam: Normal Skin Exam: Normal Triage Information Reviewed: Yes Vital Signs: Initial Vital Signs Temp 98.8 F 10/07/18 11:41 Pulse 92 10/07/18 11:41 Resp 18 10/07/18 11:41 BP 142/92 10/07/18 11:41 Pulse Ox 97 10/07/18 11:41 Respiratory Course/Dx - Course Course Of Treatment: 58 y/o male presents to the urgent care c/o nasal congestion w/ moderate PND and productive cough w/ green phlegm since last Sunday10/04/2018. Pt reports mild wheezing since last night and this morning his chest feels tight. Pt has been taken Alkaseltzer plus w/o any improvement of symptoms. Pt reports he has similar symptoms in 08/2018 and was seen here and Dx w/ bronchitis and Rx Z-gogo. Pt states he thinks symptoms are similar and he would like to have a chest X- ray to r/o pneumonia. Pt denies fever, but had chills last night. Pt denies SOB , chest pain, abdominal pain, N/v/d. Pt has an appt w/ DR [facility] in 1 weeks Hx obtained. Pt B/L posterior upper lungs w/ scattered rhonchi, mild wheezing, no crackles or rales. O2Sat:97%. Pt given Duoneb Treatment by nurse to alleviate symptoms. Pt tolerated well treatment and lungs improved,and wheezing resolved and he fell better. Patient prescribed doxycycline PO , Tessalon tabs, albuterol inhaler, Albuterol neb. to alleviate symptoms as directed below. Paper script given to patient for an nebulizer machine. The patient was recommended to increase fluid intake. Take medications as recommended. Pt advised to f/u w/ her PCP if symptoms do not improve and keep his appt w/ [facility] to r/o asthma. Pt's BP is elevated today advised to decrease salt in diet, monitor BP and f/u with PCP for further management. All D/C instructions explained. Patient understood and agree w/ plan of care. Pt left clinic hemodynamically stable , A&OX3 - Differential Dx/Diagnosis Differential Diagnosis/HQI/PQRI: Asthma, Bronchitis, Exacerbation Of COPD, Influenza, Laryngitis, Lower Resp Infection, Sinusitis, Other - pneumonia Provider Diagnosis: Uncontrolled hypertension, Acute bronchitis, Wheezing Discharge - Sign-Out/Discharge Documenting (check all that apply): Patient Departure - d/C home All imaging exams completed and their final reports reviewed: Yes - Discharge Plan Condition: Stable Disposition: HOME Prescriptions: Albuterol HFA INHALER* [Ventolin HFA Inhaler*] 1 - 2 puff INH Q6H PRN #1 mdi PRN Reason: Wheezing Albuterol/Ipratropium NEB.DON* [Duoneb (Albuterol 2.5 MG/Ipratropium 0.5 MG)] 1 neb INH Q6H PRN #1 neb.soln PRN Reason: Wheezing Benzonatate CAP* [Tessalon 100 MG CAP*] 100 mg PO TID #21 cap DOXYcycline CAP(*) [DOXYcycline 100MG CAP(*)] 100 mg PO BID #14 cap Patient Education Materials: Acute Bronchitis (ED), Wheezing (ED) Referrals: Dilan Aceves MD [Primary Care Provider] - 3 Days Additional Instructions: 1-Please take full course of antibiotic to avoid resistance. Take yogurt w/ probiotics or culturelle to protect your GI system 2-Take Tessalon PO tabs as directed and use the albuterol inhaler w/ areochamber to alleviate cough and wheezing. Increase fluid intake, rest and eat well. 3- If symptoms do not improve or worsen or your develop SOB with fever and severe wheezing please go immediately to the ER further evaluation and treatment. 4- F/u with your PCP in 2-3 days for further management on your Asthma 5- Your BP is elevated today. please decrease salt in your diet, monitor BP and if it continues to be elevated please f/u with your PCP for further management. - Billing Disposition and Condition Condition: STABLE Disposition: Home
[2018-10-07] MEDS ORDERED: Albuterol/Ipratropium NEB.SOL* Albuterol 2.5 MG/Ipratropium 0.5 MG 3 ML INH ONE (13:16)
[2018-10-07 14:19] VITALS: BP 145/80
== END 2018-10-07 14:25 | disposition home or self-care (01) ==
LOC: UCEAST 11:12
DX: J20.9 Acute bronchitis, unspecified (principal); I10 Essential (primary) hypertension
CPT/HCPCS: 71046; 99212; A9270-GY; G0463